=== PATIENT | female | born 1960 | race Caucasian/White ===

== ENCOUNTER 2017-05-09 19:48 | Emergency (ER) | payer OTHER ==
[2017-05-09] MEDS ORDERED: Norco 10/325 MG Tablet PO ONE (20:17)
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
[2017-05-09] MEDS ORDERED: Norco 10/325 MG Tablet ONE (20:24)
[2017-05-09 22:54] VITALS: BP 186/86; PULSE 77; O2SAT 95
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
== END 2017-05-09 23:01 | disposition home or self-care (01) ==
LOC: ED 19:48
DX: S20.212A Contusion of left front wall of thorax, initial encounter (principal); S16.1XXA Strain of muscle, fascia and tendon at neck level, initial encounter; S00.03XA Contusion of scalp, initial encounter; Y04.8XXA Assault by other bodily force, initial encounter; Y92.198 Other place in other specified residential institution as the place of occurrence of the external cause; Y99.0 Civilian activity done for income or pay
CPT/HCPCS: 70450; 71010; 72125; 99284; A9270-GY

== ENCOUNTER 2018-06-05 19:09 | Emergency (ER) | payer BC, OTHER ==
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
[2018-06-05] MEDS ORDERED: Sodium Chloride 0.9% 1000 ML 1,000 ML IV STA (20:08)
[2018-06-05] MEDS ORDERED: Zofran 4 MG/2 ML VIAL IV ONE (20:08)
[2018-06-05 20:38] LABS: Appearance CLEAR (CLEAR); Bilirubin NEGATIVE (NEGATIVE); Blood NEGATIVE Ery/ul (0-5); Glucose >=500 mg/dL (NEGATIVE); Ketones NEGATIVE (NEGATIVE); Leukocyte Esterase NEGATIVE (NEGATIVE); Nitrite NEGATIVE (NEGATIVE); Protein,Urine Dip NEGATIVE (Negative); Specific Gravity 1.025 (1.005-1.025); Urobilinogen NEGATIVE mg/dL (0-1)
[2018-06-05 21:27] LABS: BASOPHIL % 0.1 % (0.0-0.4); Basophil (Absolute #) 0.01 (0-0.4); Eosinophil % 3.4 % (0.00-5.0); Eosinophil (Absolute #) 0.29 (0-0.5); Granulocyte Absolute (ANC) 5.99 (1.4-6.9); Granulocytes % 70.8 % (36.0-66.0); Hematocrit 42.3 % (35-47); Hemoglobin 13.7 gm/dl (12.0-16.0); Lymphocyte (Absolute #) 1.61 (1.0-4.6); Mean Cell Volume 91.4 fl (78-100); Mean Corpuscular Hemoglobin 29.6 pg (26-32); Mean Corpuscular Hgb Concent. 32.4 g/dl (32-36); Mean Platelet Volume 12.3 fl (6-9.5); Monocyte (Absolute #) 0.57 (0.0-1.3); Monocytes % 6.7 % (0.0-12.0); Platelet Count 214 K/mm3 (150-450); Red Blood Count 4.63 M/mm3 (4.1-5.4); Red Cell Distribution Width 14.6 % (11.5-14.0); White Blood Count 8.5 K/mm3 (4.0-10.5)
[2018-06-05 21:54] LABS: ALBUMIN 3.9 g/dL (3.5-5.0); ALKALINE PHOSPHATASE 74 U/L (38-126); ANION GAP 11.2 MEQ/L (5-15); BLOOD UREA NITROGEN 22 mg/dL (7-17); CHLORIDE 101 mmol/L (98-107); Calcium 9.2 mg/dL (8.4-10.2); Carbon Dioxide 28 mmol/L (22-30); Creatinine 1 0.73 mg/dL (0.52-1.04); Glucose 172 mg/dL (74-106); Potassium 4.4 mmol/L (3.5-5.1); SGOT/AST 15 U/L (14-36); SGPT/ALT 13 U/L (0-35); SODIUM 136 mmol/L (137-145); Total Protein 6.8 g/dL (6.3-8.2)
[2018-06-05] MEDS ORDERED: Zofran 4 MG/2 ML VIAL ONE (23:36)
[2018-06-05] MEDS ORDERED: Sodium Chloride 0.9% 1000 ML 1,000 ML ONE (23:36)
[2018-06-06 01:15] VITALS: PULSE 83
[2018-06-06 02:09] VITALS: O2SAT 95
[2018-06-06 02:36] VITALS: BP 156/88
--- NOTE | 2018-06-06 08:46 | XRAY ---
Indication: Headache and dizziness. High blood pressure and high blood sugar. Multiple contiguous axial images obtained through the head without contrast. Comparison: May 09, 2017. Again normal appearing brain parenchyma, ventricles, and bony calvarium. Visualized paranasal sinuses and mastoid air cells are clear. Impression: Stable normal CT head without contrast exam. CT DI 67.60
--- NOTE | 2018-06-06 09:13 | XRAY ---
Indication: Dizziness. Chest heaviness and short of breath. Elevated d-dimer. Multiple contiguous axial images obtained through the chest using 80 cc Isovue 370 contrast and PE protocol. Comparison: Routine CT chest May 14, 2012. There is satisfactory opacification of the pulmonary arteries to includes the lobar and segmental branches. No filling defect or pulmonary embolus. Heart is not enlarged. Aorta is normal in course and caliber. Incidental tiny subcarinal and bilateral hilar calcified nodes. No pathologic mediastinal/hilar lymphadenopathy. Again small hiatal hernia. Examination of the lung parenchyma again demonstrates bilateral dependent atelectasis, left base fibrosis/scarring, and small right lower lobe bleb. No suspicious pulmonary mass, infiltrate, or effusion. Bony thorax intact again with mild degenerative changes throughout the spine. Limited upper abdomen again demonstrates mild fatty liver and cholecystectomy clips. Impression: 1. Negative pulmonary embolus. No acute cardiopulmonary abnormalities. 2. Again small hiatal hernia, fatty liver, and evidence for old granulomatous disease. Comment: Preliminary interpretation was made by [facility]. No critical discrepancy. CT DI 28.13
== END 2018-06-06 02:45 | disposition home or self-care (01) ==
LOC: ED 19:09
DX: R42 Dizziness and giddiness (principal); H92.01 Otalgia, right ear; R79.1 Abnormal coagulation profile; E11.9 Type 2 diabetes mellitus without complications; Z79.84 Long term (current) use of oral hypoglycemic drugs; Z79.899 Other long term (current) drug therapy
CPT/HCPCS: 36000; 36415; 70450; 71260; 80053; 81001; 83605; 84484; 85025; 85379; 93005; 96360; 96374; 99284; J2405

== ENCOUNTER 2019-06-28 00:22 | Emergency (ER) | payer OTHER ==
--- NOTE | 2019-06-28 00:33 | ERPHSYRPT ---
- History of Present Illness Time Seen by Provider: 06/28/19 00:33 Source: patient, EMS Exam Limitations: no limitations Patient Subjective Stated Complaint: pt states she noticed that her pressure was high since yesterday. today reading 190/100. pt called nurse and they told her to take extra dose of lisinopril at 1800. pressure still high so pt friend called 911. Triage Nursing Assessment: ptg is alert and oriented, states that she has no pain at this time. pt states her pressure is now about normal after arriving to er 178/74 Physician History: 58 y/o white female presents via ems because of elevated bp. pt has htn but sbp usually in the 150s. pt has noticed last few days sbp is higher than usual. pt has not had any symptoms of abd pain, cp, headache or visual changes. pt arrived via ems because friend called ems and at home sbp >200. ems reports her sbp has slowly dropped during transport here. pt told RN she refuses iv placement and wants to go home since her sbp is now in the range of normal for her and she has no sx. i have convinced her to stay for a few more bp readings and check her bmp. she does not anything more than that. Timing/Duration: today Severity: mild Modifying Factors: Improves With: nothing Associated Symptoms: denies symptoms Allergies/Adverse Reactions: diclofenac Allergy (Verified 06/28/19 00:31) Sulfa (Sulfonamide Antibiotics) [Sulfa(Sulfonamide Antibiotics)] Allergy ( Verified 06/28/19 00:31) topiramate [From Topamax] Allergy (Verified 06/28/19 00:31) Home Medications: Acetaminophen [Tylenol] 0 mg PO DAILY PRN 05/09/17 [History] Aspirin 81 mg PO DAILY 05/09/17 [History] Lisinopril 0 mg PO DAILY 05/09/17 [History] Lovastatin 0 mg PO DAILY 05/09/17 [History] Metformin HCl 1,000 mg PO BID 05/09/17 [History] Pioglitazone HCl [Actos] 0 mg PO DAILY 05/09/17 [History] Sitagliptin Phosphate [Januvia] 0 mg PO DAILY 05/09/17 [History] Empagliflozin [Jardiance] 1 tab PO DAILY 06/05/18 [History] Ciprofloxacin HCl [Cipro] 500 mg PO DAILY 06/28/19 [History] Levetiracetam 500 mg PO DAILY 06/28/19 [History] Hx Tetanus, Diphtheria Vaccination/Date Given: No Hx Influenza Vaccination/Date Given: No Hx Pneumococcal Vaccination/Date Given: No - Review of Systems Constitutional: No Symptoms Eyes: No Symptoms Ears, Nose, & Throat: No Symptoms Respiratory: No Symptoms Cardiac: No Symptoms Abdominal/Gastrointestinal: No Symptoms Genitourinary Symptoms: No Symptoms Musculoskeletal: No Symptoms Skin: No Symptoms Neurological: No Symptoms Psychological: No Symptoms Endocrine: No Symptoms Hematologic/Lymphatic: No Symptoms Immunological/Allergic: No Symptoms All Other Systems: Reviewed and Negative - Past Medical History Pertinent Past Medical History: Yes Neurological History: Migraines, Peripheral Neuropathy Cardiac History: No Pertinent History, Angina Respiratory History: No Pertinent History, Other Endocrine Medical History: Diabetes Type II, Other Musculoskeletal History: Osteoarthritis History: No Pertinent History Psycho-Social History: No Pertinent History Female Reproductive Disorders: No Pertinent History Other Medical History: upper torso neuropathy, overactive bladder, - Past Surgical History Past Surgical History: Yes Neuro Surgical History: No Pertinent History Cardiac: No Pertinent History Respiratory: No Pertinent History Gastrointestinal: Cholecystectomy Genitourinary: No Pertinent History Musculoskeletal: No Pertinent History Female Surgical History: Section Other Surgical History: RIGHT KNEE SURGERY - Social History Smoking Status: Former smoker Exposure to second hand smoke: Yes Drug Use: none Patient Lives Alone: Yes - Nursing Vital Signs Nursing Vital Signs: Initial Vital Signs Temperature 98.4 F 06/28/19 00:23 Pulse Rate 78 06/28/19 00:23 Respiratory Rate 18 06/28/19 00:23 Blood Pressure 178/74 06/28/19 00:23 O2 Sat by Pulse Oximetry 97 06/28/19 00:23 Pain Scale Pain Intensity 0 - Physical Exam General Appearance: no apparent distress Eye Exam: PERRL/EOMI, eyes nml inspection Ears, Nose, Throat Exam: normal ENT inspection, moist mucous membranes Neck Exam: normal inspection, non-tender, supple, full range of motion Respiratory Exam: normal breath sounds, lungs clear, airway intact, No chest tenderness, No respiratory distress Cardiovascular Exam: regular rate/rhythm, normal heart sounds, normal peripheral pulses Gastrointestinal/Abdomen Exam: No tenderness Rectal Exam: not done Back Exam: normal inspection, normal range of motion, No CVA tenderness, No vertebral tenderness Extremity Exam: normal inspection, normal range of motion, pelvis stable Neurologic Exam: alert, oriented x 3, 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, 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 Skin Exam: normal color, warm, dry Lymphatic Exam: No adenopathy SpO2 Interpretation: normal SpO2: 97 O2 Delivery: Room Air - Course Nursing assessment & vital signs reviewed: Yes Ordered Tests: Active Orders 24 hr Category Date Time Status BMP Stat Lab 06/28/19 01:20 Completed Lab/Rad Data: Laboratory Result Diagrams 06/28/19 01:20 Laboratory Results 06/28/19 Range/Units 01:20 Sodium 145 (137-145) mmol/L Potassium 4.4 (3.5-5.1) mmol/L Chloride 113 H (98-107) mmol/L Carbon Dioxide 27 (22-30) mmol/L Anion Gap 9.2 (5-15) MEQ/L BUN 21 H (7-17) mg/dL Creatinine 1.06 H (0.52-1.04) mg/dL Estimated GFR 56.2 ML/MIN Glucose 115 H (74-106) mg/dL Calcium 9.2 (8.4-10.2) mg/dL - Progress Progress: improved, re-examined Progress Note: 06/28/19 02:06 pt does not have cp or any other sx. she wants to go home. Counseled pt/family regarding: lab results, diagnosis, need for follow-up - Departure Departure Disposition: Home Clinical Impression: HTN (hypertension) Condition: Stable Critical Care Time: No Referrals: FOREIGN HIGH, DO [Primary Care Provider] - Additional Instructions: take your medications as prescribed. follow up with your primary doctor tomorrow for further management. monitor your blood pressure morning noon and night and keep a daily log to show your primary doctor.
[2019-06-28 01:37] LABS: ANION GAP 9.2 MEQ/L (5-15); Calcium 9.2 mg/dL (8.4-10.2); Creatinine 1 1.06 mg/dL (0.52-1.04); Potassium 4.4 mmol/L (3.5-5.1)
[2019-06-28 01:57] VITALS: BP 159/81; PULSE 77
[2019-06-28 02:06] VITALS: O2SAT 97
== END 2019-06-28 02:10 | disposition home or self-care (01) ==
LOC: ED 00:22
DX: I10 Essential (primary) hypertension (principal)
CPT/HCPCS: 36415; 80048; 99283

== ENCOUNTER 2021-03-09 17:48 | Emergency (ER) | payer OTHER ==
--- NOTE | 2021-03-09 18:05 | ERPHSYRPT ---
- History of Present Illness Time Seen by Provider: 03/09/21 18:05 Source: patient Exam Limitations: clinical condition Physician History: This is a 60-year-old obese white female who has a history of diabetes and hypertension as well as elevated cholesterol and presents with increasing confusion over the last few days. Patient's friends state that she was not answering her emails or phone and they were concerned about her and when they went to her home today she answered the door but was confused. She refused EMS transportation but her friends brought her in. Patient states that she does not think she has been eating or drinking well the last several days. She does state that she has been taking her medication as prescribed. She denies any new medications. She denies any head trauma. She denies chest pain and she denies shortness of breath. Timing/Duration: day(s), improved Severity: mild (To moderate) Character of Deficits: other (Flow to speak) Deficits: weak Baseline/Normal Cognition: alert oriented x 3 Current Cognition: alert but confused Baseline Gait: walks w/o assistance Associated Symptoms: confusion, weakness, No loss of consciousness, No nausea, No vomiting, No chest pain, No headache Allergies/Adverse Reactions: diclofenac Allergy (Verified 03/09/21 18:10) Sulfa (Sulfonamide Antibiotics) [Sulfa(Sulfonamide Antibiotics)] Allergy (Verified 03/09/21 18:10) topiramate [From Topamax] Allergy (Verified 03/09/21 18:10) Home Medications: Lovastatin 0 mg PO DAILY 05/09/17 [History] Metformin HCl 1,000 mg PO BID 05/09/17 [History] Pioglitazone HCl [Actos] 0 mg PO DAILY 05/09/17 [History] Sitagliptin Phosphate [Januvia] 0 mg PO DAILY 05/09/17 [History] lisinopriL [Lisinopril] 0 mg PO DAILY 05/09/17 [History] Empagliflozin [Jardiance] 1 tab PO DAILY 06/05/18 [History] Levetiracetam 500 mg PO DAILY 06/28/19 [History] Hx Tetanus, Diphtheria Vaccination/Date Given: No Hx Influenza Vaccination/Date Given: No Hx Pneumococcal Vaccination/Date Given: No Travel Risk - International Travel Have you traveled outside of the country in past 3 weeks: No - Coronavirus Screening Are you exhibiting any of the following symptoms?: No Close contact with a COVID-19 positive Pt in past 14-21 Days: No - Review of Systems Constitutional: Weakness Eyes: No Symptoms Ears, Nose, & Throat: No Symptoms Respiratory: No Symptoms Cardiac: No Symptoms Abdominal/Gastrointestinal: No Symptoms Genitourinary Symptoms: No Symptoms Musculoskeletal: No Symptoms Skin: No Symptoms Neurological: Other (Slow to speak) Psychological: No Symptoms Endocrine: No Symptoms Hematologic/Lymphatic: No Symptoms Immunological/Allergic: No Symptoms All Other Systems: Reviewed and Negative - Past Medical History Pertinent Past Medical History: Yes Neurological History: Migraines, Peripheral Neuropathy Cardiac History: No Pertinent History, Angina Respiratory History: No Pertinent History, Other Endocrine Medical History: Diabetes Type II, Other Musculoskeletal History: Osteoarthritis History: No Pertinent History Psycho-Social History: No Pertinent History Female Reproductive Disorders: No Pertinent History Other Medical History: upper torso neuropathy, overactive bladder, - Past Surgical History Past Surgical History: Yes Neuro Surgical History: No Pertinent History Cardiac: No Pertinent History Respiratory: No Pertinent History Gastrointestinal: Cholecystectomy Genitourinary: No Pertinent History Musculoskeletal: No Pertinent History Female Surgical History: Section Other Surgical History: RIGHT KNEE SURGERY - Social History Smoking Status: Former smoker Exposure to second hand smoke: Yes Drug Use: none Patient Lives Alone: Yes - Nursing Vital Signs Nursing Vital Signs: Initial Vital Signs O2 Sat by Pulse Oximetry 94 L 03/09/21 17:50 Pain Scale Pain Intensity 0 - Gal Coma Scale Best Eye Response ([place]): (4) open spontaneously Best Verbal Response (Gal): (4) confused conversation Best Motor Response ([place]): (6) obeys commands Gal Total: 14 - Physical Exam General Appearance: no apparent distress, alert, anxiety, obese Eye Exam: bilateral eye: normal inspection, PERRL, EOMI Ears, Nose, Throat Exam: normal ENT inspection, moist mucous membranes Neck Exam: normal inspection, non-tender, supple, full range of motion Respiratory: normal breath sounds, lungs clear, airway intact, No chest tenderness, No respiratory distress Cardiovascular: regular rate/rhythm, normal heart sounds, normal peripheral pulses Gastrointestinal: soft, normal bowel sounds, No tenderness Pelvic Exam: not done Rectal Exam: not done Back Exam: normal inspection, normal range of motion, No CVA tenderness, No vertebral tenderness Extremity Exam: normal inspection, normal range of motion, pelvis stable Mental Status: alert, cooperative, disoriented to person, disoriented to place, 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 There are no acute changes when compared to EKG dated 06/05/2018) Ordered Tests: Active Orders 24 hr Category Date Time Status EKG-ER Only STAT Care 03/09/21 18:18 Active IV Insertion STAT Care 03/09/21 18:18 Active NPO (ED) STAT Care 03/09/21 18:19 Active Pulse Oximetry (ED) STAT Care 03/09/21 18:18 Active HEAD WITHOUT CONTRAST [CT] Stat Exams 03/09/21 18:19 Taken CBC W DIFF Stat Lab 03/09/21 18:18 Completed CMP Stat Lab 03/09/21 18:18 Completed CULTURE,URINE Stat Lab 03/09/21 18:55 Received ETHYL ALCOHOL Stat Lab 03/09/21 18:18 Completed Lactic Acid Stat Lab 03/09/21 18:18 Completed MAGNESIUM Stat Lab 03/09/21 18:18 Completed POCT GLUCOSE Stat Lab 03/09/21 18:04 Completed TROPONIN Q3H Lab 03/09/21 18:30 Completed TROPONIN Q3H Lab 03/09/21 21:30 Ordered TROPONIN Q3H Lab 03/10/21 00:30 Ordered TROPONIN Q3H Lab 03/10/21 03:30 Ordered TROPONIN Q3H Lab 03/10/21 06:30 Ordered UA W/RFX UR CULTURE Stat Lab 03/09/21 18:55 Completed Urine Triage Profile Stat Lab 03/09/21 18:55 Completed Medication Summary Generic Name Dose Route Start Last Admin Trade Name Freq PRN Reason Stop Dose Admin Ceftriaxone Sodium/Dextrose 1 g in 50 mls @ 100 mls/hr 03/09/21 19:41 Rocephin 1 Gm-D5w 50 Ml Bag IV 03/09/21 20:10 STAT STA Discontinued Medications Generic Name Dose Route Start Last Admin Trade Name Reynaldo PRN Reason Stop Dose Admin Sodium Chloride 1,000 mls @ 999 mls/hr 03/09/21 18:18 03/09/21 18:39 Sodium Chloride 0.9% 1000 Ml IV 03/09/21 19:18 999 mls/hr .Q1H1M STA Administration Sodium Chloride Confirm 03/09/21 18:33 Sodium Chloride 0.9% 1000 Ml Administered 03/09/21 18:34 Dose 1,000 mls @ ud .ROUTE .STK-MED ONE Lab/Rad Data: Laboratory Result Diagrams 03/09/21 18:18 03/09/21 18:18 Laboratory Results 03/09/21 03/09/21 03/09/21 Range/Units 18:55 18:55 18:30 WBC (4.0-10.5) K/mm3 RBC (4.1-5.4) M/mm3 Hgb (12.0-16.0) gm/dl Hct (35-47) % MCV (78-100) fl MCH (26-32) pg MCHC (32-36) g/dl RDW (11.5-14.0) % Plt Count (150-450) K/mm3 MPV (7.5-11.0) fl Gran % (36.0-66.0) % Eos # (Auto) (0-0.5) Absolute Lymphs (auto) (1.0-4.6) Absolute Monos (auto) (0.0-1.3) Lymphocytes % (24.0-44.0) % Monocytes % (0.0-12.0) % Eosinophils % (0.00-5.0) % Basophils % (0.0-0.4) % Absolute Granulocytes (1.4-6.9) Basophils # (0-0.4) Sodium (137-145) mmol/L Potassium (3.5-5.1) mmol/L Chloride (98-107) mmol/L Carbon Dioxide (22-30) mmol/L Anion Gap (5-15) MEQ/L BUN (7-17) mg/dL Creatinine (0.52-1.04) mg/dL Estimated GFR ML/MIN Glucose (74-106) mg/dL POC Glucometer (74 to 106) mg/dL Lactic Acid (0.4-2.0) Calcium (8.4-10.2) mg/dL Magnesium (1.6-2.3) mg/dL Total Bilirubin (0.2-1.3) mg/dL AST (14-36) U/L ALT (0-35) U/L Alkaline Phosphatase (38-126) U/L Troponin I < 0.012 (0.000-0.034) ng/mL Serum Total Protein (6.3-8.2) g/dL Albumin (3.5-5.0) g/dL Urine Color YELLOW (YELLOW) Urine Appearance SLIGHTLY CLOUDY (CLEAR) Urine pH 5.0 (5-6) Ur Specific [place] 1.036 (1.005-1.025) Urine Protein 30 (Negative) Urine Ketones SMALL (NEGATIVE) Urine Blood NEGATIVE (0-5) Sanjiv/ul Urine Nitrite POSITIVE (NEGATIVE) Urine Bilirubin NEGATIVE (NEGATIVE) Urine Urobilinogen 4 (0-1) mg/dL Ur Leukocyte Esterase NEGATIVE (NEGATIVE) Urine WBC (Auto) 3-5 (0-5) /HPF Urine RBC (Auto) 0-2 (0-2) /HPF U Epithel Cells (Auto) RARE (FEW) /HPF Urine Bacteria (Auto) PACKED (NEGATIVE) /HPF Urine Mucus (Auto) SLIGHT (NEGATIVE) /HPF Urine Culture Reflexed YES (NO) Urine Glucose >=500 (NEGATIVE) mg/dL Urine Opiates Level NEGATIVE (NEGATIVE) Ur Methadone NEGATIVE (NEGATIVE) Urine Barbiturates NEGATIVE (NEGATIVE) Ur Phencyclidine (PCP) NEGATIVE (NEGATIVE) Urine Amphetamine NEGATIVE (NEGATIVE) U Benzodiazepine Level NEGATIVE (NEGATIVE) Urine Cocaine NEGATIVE (NEGATIVE) Urine Marijuana (THC) NEGATIVE (NEGATIVE) Ethyl Alcohol (0-10) mg/dL 03/09/21 03/09/21 03/09/21 Range/Units 18:18 18:18 18:18 WBC 4.3 (4.0-10.5) K/mm3 RBC 4.74 (4.1-5.4) M/mm3 Hgb 14.1 (12.0-16.0) gm/dl Hct 43.7 (35-47) % MCV 92.2 (78-100) fl MCH 29.7 (26-32) pg MCHC 32.3 (32-36) g/dl RDW 13.9 (11.5-14.0) % Plt Count 154 (150-450) K/mm3 MPV 12.6 H (7.5-11.0) fl Gran % 77.0 H (36.0-66.0) % Eos # (Auto) 0 (0-0.5) Absolute Lymphs (auto) 0.60 L (1.0-4.6) Absolute Monos (auto) 0.40 (0.0-1.3) Lymphocytes % 13.8 L (24.0-44.0) % Monocytes % 9.2 (0.0-12.0) % Eosinophils % 0.0 (0.00-5.0) % Basophils % 0.0 (0.0-0.4) % Absolute Granulocytes 3.34 (1.4-6.9) Basophils # 0 (0-0.4) Sodium 137 (137-145) mmol/L Potassium 3.7 (3.5-5.1) mmol/L Chloride 103 (98-107) mmol/L Carbon Dioxide 19 L (22-30) mmol/L Anion Gap 18.2 H (5-15) MEQ/L BUN 19 H (7-17) mg/dL Creatinine 0.84 (0.52-1.04) mg/dL Estimated GFR > 60.0 ML/MIN Glucose 241 H (74-106) mg/dL POC Glucometer (74 to 106) mg/dL Lactic Acid 1.5 (0.4-2.0) Calcium 8.6 (8.4-10.2) mg/dL Magnesium 1.9 (1.6-2.3) mg/dL Total Bilirubin 0.70 (0.2-1.3) mg/dL AST 33 (14-36) U/L ALT 16 (0-35) U/L Alkaline Phosphatase 81 (38-126) U/L Troponin I (0.000-0.034) ng/mL Serum Total Protein 6.6 (6.3-8.2) g/dL Albumin 3.7 (3.5-5.0) g/dL Urine Color (YELLOW) Urine Appearance (CLEAR) Urine pH (5-6) Ur Specific [place] (1.005-1.025) Urine Protein (Negative) Urine Ketones (NEGATIVE) Urine Blood (0-5) Sanjiv/ul Urine Nitrite (NEGATIVE) Urine Bilirubin (NEGATIVE) Urine Urobilinogen (0-1) mg/dL Ur Leukocyte Esterase (NEGATIVE) Urine WBC (Auto) (0-5) /HPF Urine RBC (Auto) (0-2) /HPF U Epithel Cells (Auto) (FEW) /HPF Urine Bacteria (Auto) (NEGATIVE) /HPF Urine Mucus (Auto) (NEGATIVE) /HPF Urine Culture Reflexed (NO) Urine Glucose (NEGATIVE) mg/dL Urine Opiates Level (NEGATIVE) Ur Methadone (NEGATIVE) Urine Barbiturates (NEGATIVE) Ur Phencyclidine (PCP) (NEGATIVE) Urine Amphetamine (NEGATIVE) U Benzodiazepine Level (NEGATIVE) Urine Cocaine (NEGATIVE) Urine Marijuana (THC) (NEGATIVE) Ethyl Alcohol < 10 (0-10) mg/dL 03/09/21 Range/Units 18:04 WBC (4.0-10.5) K/mm3 RBC (4.1-5.4) M/mm3 Hgb (12.0-16.0) gm/dl Hct (35-47) % MCV (78-100) fl MCH (26-32) pg MCHC (32-36) g/dl RDW (11.5-14.0) % Plt Count (150-450) K/mm3 MPV (7.5-11.0) fl Gran % (36.0-66.0) % Eos # (Auto) (0-0.5) Absolute Lymphs (auto) (1.0-4.6) Absolute Monos (auto) (0.0-1.3) Lymphocytes % (24.0-44.0) % Monocytes % (0.0-12.0) % Eosinophils % (0.00-5.0) % Basophils % (0.0-0.4) % Absolute Granulocytes (1.4-6.9) Basophils # (0-0.4) Sodium (137-145) mmol/L Potassium (3.5-5.1) mmol/L Chloride (98-107) mmol/L Carbon Dioxide (22-30) mmol/L Anion Gap (5-15) MEQ/L BUN (7-17) mg/dL Creatinine (0.52-1.04) mg/dL Estimated GFR ML/MIN Glucose (74-106) mg/dL POC Glucometer 228 H (74 to 106) mg/dL Lactic Acid (0.4-2.0) Calcium (8.4-10.2) mg/dL Magnesium (1.6-2.3) mg/dL Total Bilirubin (0.2-1.3) mg/dL AST (14-36) U/L ALT (0-35) U/L Alkaline Phosphatase (38-126) U/L Troponin I (0.000-0.034) ng/mL Serum Total Protein (6.3-8.2) g/dL Albumin (3.5-5.0) g/dL Urine Color (YELLOW) Urine Appearance (CLEAR) Urine pH (5-6) Ur Specific [place] (1.005-1.025) Urine Protein (Negative) Urine Ketones (NEGATIVE) Urine Blood (0-5) Sanjiv/ul Urine Nitrite (NEGATIVE) Urine Bilirubin (NEGATIVE) Urine Urobilinogen (0-1) mg/dL Ur Leukocyte Esterase (NEGATIVE) Urine WBC (Auto) (0-5) /HPF Urine RBC (Auto) (0-2) /HPF U Epithel Cells (Auto) (FEW) /HPF Urine Bacteria (Auto) (NEGATIVE) /HPF Urine Mucus (Auto) (NEGATIVE) /HPF Urine Culture Reflexed (NO) Urine Glucose (NEGATIVE) mg/dL Urine Opiates Level (NEGATIVE) Ur Methadone (NEGATIVE) Urine Barbiturates (NEGATIVE) Ur Phencyclidine (PCP) (NEGATIVE) Urine Amphetamine (NEGATIVE) U Benzodiazepine Level (NEGATIVE) Urine Cocaine (NEGATIVE) Urine Marijuana (THC) (NEGATIVE) Ethyl Alcohol (0-10) mg/dL - Progress Progress: improved, re-examined Progress Note: 03/09/21 19:52 CAT scan of the head without contrast shows no acute intracranial abnormality. Counseled pt/family regarding: lab results, diagnosis, need for follow-up, rad results - Departure Departure Disposition: Home Clinical Impression: UTI (urinary tract infection), Confusion Condition: Stable Critical Care Time: No Referrals: FOREIGN HIGH DO [Primary Care Provider] - Additional Instructions: Drink plenty of fluids. Take your medication as prescribed. Follow-up with your primary care physician for further management. Return to the emergency department if symptoms worsen. Prescriptions: Cefdinir 300 mg PO BID 7 Days #14 cap
[2021-03-09] MEDS ORDERED: Sodium Chloride 0.9% 1000 ML 1,000 ML IV STA (18:18)
[2021-03-09] MEDS ORDERED: Sodium Chloride 0.9% 1000 ML 1,000 ML ONE (18:33)
[2021-03-09 18:57] LABS: Absolute Neutrophil Ct (ANC) 3.34 (1.4-6.9); Basophil (Absolute #) 0 (0-0.4); Eosinophil (Absolute #) 0 (0-0.5); Hematocrit 43.7 % (35-47); Hemoglobin 14.1 gm/dl (12.0-16.0); Lymphocytes % 13.8 % (24.0-44.0); Mean Cell Volume 92.2 fl (78-100); Mean Corpuscular Hemoglobin 29.7 pg (26-32); Mean Corpuscular Hgb Concent. 32.3 g/dl (32-36); Mean Platelet Volume 12.6 fl (7.5-11.0); Monocytes % 9.2 % (0.0-12.0); Platelet Count 154 K/mm3 (150-450); Red Blood Count 4.74 M/mm3 (4.1-5.4); Red Cell Distribution Width 13.9 % (11.5-14.0); White Blood Count 4.3 K/mm3 (4.0-10.5)
[2021-03-09 19:03] VITALS: BP 142/81; PULSE 91; O2SAT 94
[2021-03-09 19:06] LABS: Appearance SLIGHTLY CLOUDY (CLEAR); Bacteria PACKED /HPF (NEGATIVE); Bilirubin NEGATIVE (NEGATIVE); Blood NEGATIVE Ery/ul (0-5); Epithelial Cells RARE /HPF (FEW); Glucose >=500 mg/dL (NEGATIVE); Ketones SMALL (NEGATIVE); Leukocyte Esterase NEGATIVE (NEGATIVE); Mucus SLIGHT /HPF (NEGATIVE); Nitrite POSITIVE (NEGATIVE); Protein,Urine Dip 30 (Negative); RBC 0-2 /HPF (0-2); Specific Gravity 1.036 (1.005-1.025); Urobilinogen 4 mg/dL (0-1)
[2021-03-09 19:08] LABS: ALBUMIN 3.7 g/dL (3.5-5.0); ALKALINE PHOSPHATASE 81 U/L (38-126); ANION GAP 18.2 MEQ/L (5-15); BLOOD UREA NITROGEN 19 mg/dL (7-17); CHLORIDE 103 mmol/L (98-107); Calcium 8.6 mg/dL (8.4-10.2); Carbon Dioxide 19 mmol/L (22-30); Creatinine 1 0.84 mg/dL (0.52-1.04); EST GLOMERULAR FILTRATION RATE > 60.0 ML/MIN; ETHYL ALCOHOL < 10 mg/dL (0-10); Glucose 241 mg/dL (74-106); MAGNESIUM 1.9 mg/dL (1.6-2.3); Potassium 3.7 mmol/L (3.5-5.1); SGOT/AST 33 U/L (14-36); SGPT/ALT 16 U/L (0-35); SODIUM 137 mmol/L (137-145); Total Protein 6.6 g/dL (6.3-8.2)
[2021-03-09 19:12] LABS: Amphetamine,Urine NEGATIVE (NEGATIVE); Barbiturate,Urine NEGATIVE (NEGATIVE); Benzodiazepine,Urine NEGATIVE (NEGATIVE); Cocaine,Urine NEGATIVE (NEGATIVE); Methadone,Urine NEGATIVE (NEGATIVE); Opiate,Urine NEGATIVE (NEGATIVE); PCP,Urine NEGATIVE (NEGATIVE); THC,Urine NEGATIVE (NEGATIVE)
[2021-03-09] MEDS ORDERED: ROCEPHIN 1 Gm-D5w 50 ml Bag** 1 G/50 ML IVPB IV STA (19:41)
[2021-03-09] MEDS ORDERED: ROCEPHIN 1 Gm-D5w 50 ml Bag** 1 G/50 ML IVPB IV ONE (20:01)
--- NOTE | 2021-03-10 08:53 | XRAY ---
Indication: Confusion. Hesitation with verbalization. Multiple contiguous axial images obtained through the head without contrast. Comparison: June 05, 2018. There is age-appropriate global atrophy and minimal periventricular degenerative micro-ischemia bilaterally. No acute intracranial hemorrhage, abnormal extra-axial fluid collection, or mass effect. Fourth ventricle is midline without hydrocephalus. Martinez-white matter differentiation preserved. Bony calvarium intact. Visualized paranasal sinuses and mastoid air cells are clear. Impression: Nonacute senile brain.
== END 2021-03-09 21:31 | disposition home or self-care (01) ==
LOC: ED 17:48
DX: N39.0 Urinary tract infection, site not specified (principal); R41.0 Disorientation, unspecified; Z79.899 Other long term (current) drug therapy; I10 Essential (primary) hypertension; E11.9 Type 2 diabetes mellitus without complications
CPT/HCPCS: 36000; 36415; 70450; 80053; 80307; 81001; 82947; 83605; 83735; 84484; 85025; 87077; 87086; 87186; 93005; 94760; 96360; 99284; G0480; P9612; J0696

== ENCOUNTER 2024-02-23 15:06 | Day surgery (SDC) | payer MEDICARE ==
[2012-05-14 10:58] VITALS: BP 141/85
[2024-02-23] MEDS ORDERED: Sodium Chloride 0.9(Preservative Free) 10 ML IJ ONE (15:07)
[2024-02-23] MEDS ORDERED: LIDOCAINE HCL 1% 50 MG/5 ML VL PF IJ ONE (15:07)
[2024-02-23] MEDS ORDERED: Depo-Medrol 40 MG/ML IM ONE (15:07)
--- NOTE | 2024-02-23 16:49 | XRAY ---
Indication: Lumbar YOSHI. Intraoperative fluoroscopy provided for 17 seconds. 3 digital spot image demonstrates needle tip projecting posterior to lumbosacral junction. Small amount of contrast injected for needle tip placement. Correlate with intraoperative findings/report.
--- NOTE | 2024-02-24 10:36 | XRAY ---
17 seconds of fluoroscopy were used in surgery for a Lumbar YOSHI.
== END 2024-02-23 16:24 ==
LOC: SDC-PAIN 15:06
PROVIDERS: ATTEND Psychiatry & Neurology Pain Medicine
DX: M54.16 Radiculopathy, lumbar region (principal); E11.9 Type 2 diabetes mellitus without complications
CPT/HCPCS: 62323; 72100; 77003; 82947; J2001; Q9966

== ENCOUNTER 2024-03-29 14:10 | Day surgery (SDC) | payer MEDICARE ==
[2012-05-14 10:58] VITALS: BP 141/85
[2024-03-29] MEDS ORDERED: GELSYN-3 IU ONE (14:11)
[2024-03-29] MEDS ORDERED: LIDOCAINE HCL 1% 50 MG/5 ML VL PF IJ ONE (14:11)
--- NOTE | 2024-03-29 16:58 | XRAY ---
Indication: Right knee injection. Intraoperative fluoroscopy provided for 8 seconds. Single digital spot image submitted for interpretation demonstrates needle tip projecting over the right femur intercondylar notch. Small amount of contrast injected for needle tip placement. Correlate with intraoperative findings/report.
--- NOTE | 2024-03-29 16:58 | XRAY ---
Indication: Left knee injection. Intraoperative fluoroscopy provided for 10 seconds. Single digital spot image submitted for interpretation demonstrates needle tip projecting over the left femur intercondylar notch. Small amount of contrast injected for needle tip placement. Correlate with intraoperative findings/report.
--- NOTE | 2024-03-29 17:32 | XRAY ---
10 seconds of fluoroscopy was used in surgery for a right intra-articular knee injection.
--- NOTE | 2024-03-29 17:32 | XRAY ---
10 seconds of fluoroscopy was used in surgery for a left intra-articular knee injection.
== END 2024-03-29 16:53 | disposition home or self-care (01) ==
LOC: SDC-PAIN 14:10
PROVIDERS: ATTEND Psychiatry & Neurology Pain Medicine
DX: M17.0 Bilateral primary osteoarthritis of knee (principal); E11.9 Type 2 diabetes mellitus without complications
CPT/HCPCS: 20610; 73560; 77002; 82947; J2001; J7328; Q9966

== ENCOUNTER 2024-04-04 13:47 | Day surgery (SDC) | payer MEDICARE ==
[2012-05-14 10:58] VITALS: BP 141/85
[2024-04-04] MEDS ORDERED: LIDOCAINE HCL 1% 50 MG/5 ML VL PF IJ ONE (13:48)
--- NOTE | 2024-04-04 20:12 | XRAY ---
Indication: Right knee injection Intraoperative fluoroscopy provided for 7 seconds. Single digital spot image submitted for interpretation demonstrates needle tip projecting over the right femur intercondylar notch. Small amount of contrast injected for needle tip placement. Correlate with intraoperative findings/report.
--- NOTE | 2024-04-04 20:13 | XRAY ---
Indication: Left knee injection Intraoperative fluoroscopy provided for 8 seconds. Single digital spot image submitted for interpretation demonstrates needle tip projecting over the left femur intercondylar notch. Small amount of contrast injected for needle tip placement. Correlate with intraoperative findings/report.
--- NOTE | 2024-04-05 21:05 | XRAY ---
7 seconds of fluoroscopy was used in surgery for a right intra-articular knee injection.
--- NOTE | 2024-04-05 21:05 | XRAY ---
8 seconds of fluoroscopy was used in surgery for a left intra-articular knee injection.
== END 2024-04-04 17:18 | disposition home or self-care (01) ==
LOC: SDC-PAIN 13:47
PROVIDERS: ATTEND Psychiatry & Neurology Pain Medicine
DX: M17.0 Bilateral primary osteoarthritis of knee (principal); E11.9 Type 2 diabetes mellitus without complications
CPT/HCPCS: 20610; 73560; 77002; 82947; J2001; Q9966

== ENCOUNTER 2024-04-11 15:03 | Day surgery (SDC) | payer MEDICARE ==
[2012-05-14 10:58] VITALS: BP 141/85
[2024-04-11] MEDS ORDERED: GELSYN-3 IU ONE (15:04)
[2024-04-11] MEDS ORDERED: LIDOCAINE HCL 1% AMPUL 5 ML IJ ONE (15:04)
--- NOTE | 2024-04-11 19:35 | XRAY ---
Indication: Right knee injection. Intraoperative fluoroscopy provided for 10 seconds. Single digital spot image submitted for interpretation demonstrates needle tip projecting over right femur intercondylar notch. Small amount of contrast injected for needle tip placement. Correlate with intraoperative findings/report.
--- NOTE | 2024-04-11 19:35 | XRAY ---
Indication: Left knee injection. Intraoperative fluoroscopy provided for 9 seconds. Single digital spot image submitted for interpretation demonstrates needle tip projecting over left femur intercondylar notch. Small amount of contrast injected for needle tip placement. Correlate with intraoperative findings/report.
--- NOTE | 2024-04-12 11:27 | XRAY ---
10 seconds of fluoroscopy was used in surgery for a right intra-articular knee injection.
--- NOTE | 2024-04-12 11:27 | XRAY ---
9 seconds of fluoroscopy was used in surgery for a left intra-articular knee injection.
== END 2024-04-11 17:30 | disposition home or self-care (01) ==
LOC: SDC-PAIN 15:03
PROVIDERS: ATTEND Psychiatry & Neurology Pain Medicine
DX: M17.0 Bilateral primary osteoarthritis of knee (principal); E11.9 Type 2 diabetes mellitus without complications
CPT/HCPCS: 20610; 73560; 77002; 77003; 82947; J7328; Q9966

== ENCOUNTER 2024-10-12 16:07 | Emergency (ER) | payer MEDICARE ==
[2024-10-12 16:19] VITALS: PULSE 78; RESP 17; TEMP 97.8
--- NOTE | 2024-10-12 16:44 | ERPHSYRPT ---
- History of Present Illness Time Seen by Provider: 10/12/24 16:20 Source: patient Exam Limitations: no limitations Patient Subjective Stated Complaint: C/O right should pain following a fall in her kitchen on Tuesday. States her cat tripped her up causing her to fall. Triage Nursing Assessment: Patient came back to ER in a W/C and assisted to the bed. She is alert and oriented. No bruising or swelling noted. Patient able to take off own shirt and place herself in a gown for the exam. Physician History: This is an obese 64-year-old white female patient who has a history of seizure disorder, hypertension, diabetes, hyperlipidemia and presents to the emergency department by private vehicle secondary to accidentally getting tripped up by her cat in her kitchen. She fell onto her right shoulder and right knee. She did not hit her head. She does not have neck pain. She does not have headache. She can move all her extremities but has pain in those areas. Patient was able to change into a hospital gown on her own without assistance. Patient is on muscle relaxants. Patient denies abdominal pain. Patient denies chest pain. Patient denies shortness of breath Occurred: just prior to arrival Reason for Fall: tripped (Tripped up by her cat) Injuries/Pain Location: upper extremity (Right shoulder and right humerus), lower extremity (Right knee) Loss of Consciousness: no loss of consciousness Severity of Pain-Max: mild Severity of Pain-Current: mild Modifying Factors: Improves With: movement Associated Symptoms (Fall): extremity injury (Right shoulder, right humerus and right knee), No abdominal pain, No back pain, No chest pain, No headache, No shortness of breath, No trouble walking Allergies/Adverse Reactions: diclofenac Allergy (Verified 10/12/24 16:12) Sulfa (Sulfonamide Antibiotics) [Sulfa(Sulfonamide Antibiotics)] Allergy (Verified 10/12/24 16:12) topiramate [From Topamax] Allergy (Verified 10/12/24 16:12) Home Medications: Lovastatin 0 mg PO DAILY 05/09/17 [History] Metformin HCl 1,000 mg PO BID 05/09/17 [History] Pioglitazone HCl [Actos] 0 mg PO DAILY 05/09/17 [History] Sitagliptin Phosphate [Januvia] 0 mg PO DAILY 05/09/17 [History] lisinopriL [Lisinopril] 0 mg PO DAILY 05/09/17 [History] Empagliflozin [Jardiance] 1 tab PO DAILY 06/05/18 [History] levETIRAcetam [Levetiracetam ER] 500 mg PO DAILY 06/28/19 [History] Hx Tetanus, Diphtheria Vaccination/Date Given: No Hx Influenza Vaccination/Date Given: No Hx Pneumococcal Vaccination/Date Given: No Travel Risk - International Travel Have you traveled outside of the country in past 3 weeks: No - Emerging Infectious Disease Are you exhibiting symptoms associated with any current EIDs: No - Review of Systems Constitutional: No Symptoms Eyes: No Symptoms Ears, Nose, & Throat: No Symptoms Respiratory: No Symptoms Cardiac: No Symptoms Abdominal/Gastrointestinal: No Symptoms Genitourinary Symptoms: No Symptoms Musculoskeletal: Fall, Joint Pain (Shoulder, right humerus and right knee), No Deformity Skin: No Symptoms Neurological: No Symptoms Psychological: No Symptoms Endocrine: No Symptoms Hematologic/Lymphatic: No Symptoms Immunological/Allergic: No Symptoms All Other Systems: Reviewed and Negative - Past Medical History Pertinent Past Medical History: Yes Neurological History: Migraines, Peripheral Neuropathy Cardiac History: No Pertinent History, Angina Respiratory History: No Pertinent History, Other Endocrine Medical History: Diabetes Type II, Other Musculoskeletal History: Osteoarthritis History: No Pertinent History Psycho-Social History: No Pertinent History Female Reproductive Disorders: No Pertinent History Other Medical History: upper torso neuropathy, overactive bladder - Past Surgical History Past Surgical History: Yes Neuro Surgical History: No Pertinent History Cardiac: No Pertinent History Respiratory: No Pertinent History Gastrointestinal: Cholecystectomy Genitourinary: No Pertinent History Musculoskeletal: No Pertinent History Female Surgical History: Section Other Surgical History: RIGHT KNEE SURGERY - Social History Smoking Status: Former smoker Exposure to second hand smoke: Yes Drug Use: none - Social Determinants of Health Will the patient participate in the screening: Declined to provide - Nursing Vital Signs Nursing Vital Signs: Initial Vital Signs Temperature 97.8 F 10/12/24 16:13 Pulse Rate 78 10/12/24 16:13 Respiratory Rate 17 10/12/24 16:13 Blood Pressure 154/75 10/12/24 16:13 O2 Sat by Pulse Oximetry 99 10/12/24 16:13 Pain Scale Pain Intensity 9 - [place] Coma Score Best Eye Response ([place]): (4) open spontaneously Best Verbal Response ([place]): (5) oriented Best Motor Response ([place]): (6) obeys commands Gal Total: 15 - Physical Exam General Appearance: no apparent distress, alert, anxiety, obese Head Injury: no evidence of injury Eye Exam: PERRL/EOMI, eyes nml inspection ENT Exam: airway nml, nml ext.inspection Neck Exam: supple, trachea midline, full range of motion, normal alignment, normal inspection Respiratory/Chest Exam: normal breath sounds, No chest tenderness, No respiratory distress, No ecchymosis, No crepitus Cardiovascular Exam: normal heart sounds, regular rate/rhythm Gastrointestinal Exam: No tenderness Back Exam: normal inspection, normal range of motion, No CVA tenderness, No vertebral tenderness Extremity Exam: normal inspection, normal range of motion, pelvis stable, tenderness (Shoulder, right humerus and right knee), No deformities, No hip tenderness Neurologic Exam: alert, oriented x 3, cooperative, 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 tested, nml cerebellar function, nml station & gait, sensation nml Skin Exam: normal color, warm, dry SpO2 Interpretation: normal SpO2: 99 O2 Delivery: Room Air - Course Nursing assessment & vital signs reviewed: Yes Ordered Tests: Active Orders 24 hr Category Date Time Status HUMERUS Stat Exams 10/12/24 16:45 Taken KNEE (3 VIEWS) Stat Exams 10/12/24 16:44 Taken SHOULDER Stat Exams 10/12/24 16:45 Taken - Progress Progress: pain not gone completely Progress Note: 10/12/24 18:05 My medical decision making and the assignment of low to moderate complexity of this patient's medical issue today is based on review of the patient's past medical history, review of the patient's medication list, review the patient drug allergy list, history present illness and physical findings on examination. The workup in this patient includes x-ray of the areas that the patient specifies she is having pain which includes right shoulder, right humerus and right knee. Differential diagnosis includes but is not limited to fracture/di slocation/sprain/strain of above extremity regions 10/12/24 18:09 I interpreted the preliminary report on the following x-ray studies. They include: X-ray of the right shoulder shows chronic changes but no evidence of acute fracture or dislocation. X-ray of the right humerus shows no acute fracture or dislocation. X-ray of right knee shows no acute fracture or dislocation. There are chronic changes present. Counseled pt/family regarding: diagnosis, need for follow-up, rad results Medical Desision Making - Diagnostic Testing Diagnostic test were ordered, analyzed, and reviewed by me: Yes Radiological Interpretation: Interpreted by me, Teleradiologist Report - Risk of complications Low Risk: Low risk of morbidity from additional dx testing or treatment - Departure Departure Disposition: Home Clinical Impression: Fall with no significant injury Condition: Stable Critical Care Time: No Referrals: ESHA GUILLAUME [Primary Care Provider] - Follow up/PCP as directed Instructions: Preventing falls - ED discharge instructions Additional Instructions: Ice pack to tender areas 3 times a day for the next 3 days. You may add Tylenol 4 times a day to help control pain. Continue your muscle relaxant and other medications as prescribed. Call your primary care provider on 10/15/2024, to make arrangements for follow-up appointment for further evaluation and management.
[2024-10-12 18:06] VITALS: O2SAT 99
[2024-10-12 18:17] VITALS: BP 132/92
--- NOTE | 2024-10-12 21:31 | XRAY ---
Indication: Status post fall injury 5 days ago. Comparison: None 3 view right knee demonstrates osteopenia and moderate/advanced tricompartmental degenerative changes greatest patellofemoral compartment. No acute bony, articular, or soft tissue abnormalities.
--- NOTE | 2024-10-12 21:37 | XRAY ---
Indication: Status post fall injury 5 days ago. Comparison: None 3 view right shoulder demonstrates nondisplaced slightly comminuted humeral head/neck fracture. Elsewhere osteopenia and moderate AC degenerative arthropathy. No other bony, articular, or soft tissue abnormalities. Comment: Fracture not reported by interpreting ER clinician. Telephone report given to Dr. Smith at 0930 hrs. on October 12, 2024.
--- NOTE | 2024-10-12 21:39 | XRAY ---
Indication: Status post fall injury 5 days ago. Comparison: None 2 view right humerus demonstrates nondisplaced slightly comminuted humeral head/neck fracture best seen on same-day shoulder exam. Elsewhere osteopenia and moderate AC degenerative arthropathy. No other bony, articular, or soft tissue abnormalities. Comment: Fracture not reported by interpreting ER clinician. Telephone report given to Dr. Smith at 0930 hrs. on October 12, 2024.
== END 2024-10-12 18:23 | disposition home or self-care (01) ==
LOC: ED 16:07
DX: S42.214A Unspecified nondisplaced fracture of surgical neck of right humerus, initial encounter for closed fracture (principal); W01.0XXA Fall on same level from slipping, tripping and stumbling without subsequent striking against object, initial encounter; Y92.000 Kitchen of unspecified non-institutional (private) residence as the place of occurrence of the external cause; M25.561 Pain in right knee; E11.42 Type 2 diabetes mellitus with diabetic polyneuropathy; Z79.84 Long term (current) use of oral hypoglycemic drugs; Z79.899 Other long term (current) drug therapy
CPT/HCPCS: 73030; 73060; 73562; 99283; 99284

== ENCOUNTER 2025-02-10 12:10 | Emergency (ER) | payer MEDICARE ==
[2025-02-10] MEDS ORDERED: XYLOCAINE 1% HCL 20 ML MDV IJ ONE (12:11)
[2025-02-10 12:24] VITALS: TEMP 97.7
[2025-02-10] MEDS ORDERED: DUONEB 0.5-3 MG/3 ml Neb IH ONE (12:40)
[2025-02-10] MEDS: DUONEB 0.5-3 MG/3 ml Neb IH ONE (12:40)
--- NOTE | 2025-02-10 12:42 | ERPHSYRPT ---
- History of Present Illness Time Seen by Provider: 02/10/25 12:37 Source: patient Exam Limitations: no limitations Patient Subjective Stated Complaint: patient stated that a couple of days ago she started having a cough and started having trouble breathing, today she stated she heard a rattle in the middle of her chest Triage Nursing Assessment: patient arrived to ed with complaints of SOB/cough, patient's vitals WNL, skin N/W/D, patient does not appear to be in any apparent distress, wheezing throughout all lobes noted, no complaints of pain Physician History: Patient is 64-year-old female with significant past medical history of diabetes hypertension COPD obesity started having a shortness of breath for last 4 to 5 days with cough chest congestion. Her shortness of breath got worse today so she came to the emergency room. She denies any fever nausea chills vomiting diarrhea chest pain headache or dizziness. Timing/Duration: day(s) (3-4 days) Severity of Dyspnea-Max: mild Severity of Dyspnea-Current: mild Possible Cause: frequent episodes Associated Symptoms: cough, wheezing, productive cough, tightness, No chest pain/discomfort, No fever, No calf pain, No leg swelling, No muscle spasms hands, No painful breathing, No sweating, No tingling face, No tingling hands Allergies/Adverse Reactions: diclofenac Allergy (Verified 02/10/25 12:24) Sulfa (Sulfonamide Antibiotics) [Sulfa(Sulfonamide Antibiotics)] Allergy (Verified 02/10/25 12:24) topiramate [From Topamax] Allergy (Verified 02/10/25 12:24) Home Medications: Lovastatin 0 mg PO DAILY 05/09/17 [History] Metformin HCl 1,000 mg PO BID 05/09/17 [History] Pioglitazone HCl [Actos] 0 mg PO DAILY 05/09/17 [History] Sitagliptin Phosphate [Januvia] 0 mg PO DAILY 05/09/17 [History] lisinopriL [Lisinopril] 0 mg PO DAILY 05/09/17 [History] Empagliflozin [Jardiance] 1 tab PO DAILY 06/05/18 [History] levETIRAcetam [Levetiracetam ER] 500 mg PO DAILY 06/28/19 [History] Hx Tetanus, Diphtheria Vaccination/Date Given: Yes Hx Influenza Vaccination/Date Given: Yes Hx Pneumococcal Vaccination/Date Given: Yes Travel Risk - International Travel Have you traveled outside of the country in past 3 weeks: No - Emerging Infectious Disease Are you exhibiting symptoms associated with any current EIDs: No - Review of Systems Constitutional: No Fever, No Chills Eyes: No Symptoms Ears, Nose, & Throat: No Symptoms Respiratory: Cough, Dyspnea, Dyspnea on Exertion (SHIN), Wheezing Cardiac: No Chest Pain, No Edema, No Syncope Abdominal/Gastrointestinal: No Abdominal Pain, No Nausea, No Vomiting, No Diarrhea Genitourinary Symptoms: No Dysuria Musculoskeletal: No Back Pain, No Neck Pain Skin: No Rash Neurological: No Dizziness, No Focal Weakness, No Sensory Changes Psychological: No Symptoms Endocrine: No Symptoms All Other Systems: Reviewed and Negative - Past Medical History Pertinent Past Medical History: Yes Neurological History: Migraines, Peripheral Neuropathy Cardiac History: No Pertinent History, Angina Respiratory History: Asthma, Other Endocrine Medical History: Diabetes Type II, Other Musculoskeletal History: Osteoarthritis History: No Pertinent History Psycho-Social History: No Pertinent History Female Reproductive Disorders: No Pertinent History Other Medical History: upper torso neuropathy, overactive bladder - Past Surgical History Past Surgical History: Yes Neuro Surgical History: No Pertinent History Cardiac: No Pertinent History Respiratory: No Pertinent History Gastrointestinal: Cholecystectomy Genitourinary: No Pertinent History Musculoskeletal: No Pertinent History Female Surgical History: Section, Tubal Ligation Other Surgical History: RIGHT KNEE SURGERY x 2 - Social History Smoking Status: Never smoker Exposure to second hand smoke: Yes Drug Use: none - Social Determinants of Health Will the patient participate in the screening: Yes Do you worry about a steady place to live?: No Do you have any problems with any of the following?: No known problems In the past 12 months,have you had to go without utilities?: No Transportation Issues: No Has anyone in your support network made you feel unsafe?: No Have you or anyone in your house had to go w/o enough food: No - Nursing Vital Signs Nursing Vital Signs: Initial Vital Signs Temperature 97.7 F 02/10/25 12:10 Pulse Rate 75 02/10/25 12:10 Respiratory Rate 16 02/10/25 12:10 Blood Pressure 138/98 02/10/25 12:10 O2 Sat by Pulse Oximetry 95 02/10/25 12:10 Pain Scale Pain Intensity 0 - Physical Exam General Appearance: no apparent distress, alert Eye Exam: PERRL/EOMI Neck Exam: normal inspection, supple Respiratory Exam: diminished breath sounds, rhonchi, wheezing Cardiovascular/Chest Exam: normal heart sounds, regular rate/rhythm Abdominal/Gastrointestinal Exam: soft, No tenderness, No distention, No mass Extremity Exam: non-tender, normal range of motion, normal inspection, no calf tenderness, no pedal edema Neurologic Exam: alert, oriented x 3, 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, 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, sensation nml, No motor deficits Skin Exam: normal color, warm, No dry SpO2 Interpretation: normal SpO2: 98 O2 Delivery: Room Air - Course Nursing assessment & vital signs reviewed: Yes - Radiology Exams Chest X-ray Interpretation: Interpreted by me, Reviewed by me Ordered Tests: Active Orders 24 hr Category Date Time Status CHEST 2 VIEWS (PA AND LAT) Stat Exams 02/10/25 12:23 Taken CBC W DIFF Stat Lab 02/10/25 12:45 Completed CMP Stat Lab 02/10/25 12:45 Completed NT PRO BNPII Stat Lab 02/10/25 12:45 Completed Respiratory Therapy Assessment DAILY RT 02/10/25 13:13 Active Medication Summary Discontinued Medications Generic Name Dose Route Start Last Admin Trade Name Freq PRN Reason Stop Dose Admin Albuterol/Ipratropium 3 ml 02/10/25 12:23 02/10/25 12:40 Ipratropium/Albuterol Sulfate 3 Ml Ampul.Neb IH 02/10/25 12:24 3 ml STAT ONE Administration Albuterol/Ipratropium Confirm 02/10/25 12:40 Ipratropium/Albuterol Sulfate 3 Ml Ampul.Neb Administered 02/10/25 12:41 Dose 3 ml IH .STK-MED ONE Budesonide 0.5 mg 02/10/25 12:24 02/10/25 12:50 Budesonide 0.5 Mg/2 Ml Ampul.Neb. IH 02/10/25 12:25 0.5 mg NOW ONE Administration Lab/Rad Data: Laboratory Result Diagrams 02/10/25 12:45 02/10/25 12:45 Laboratory Results 02/10/25 02/10/25 02/10/25 Range/Units 12:45 12:45 12:45 WBC 6.8 (3.98-10.04) x10^3/uL RBC 3.59 L (3.93-5.22) x10^6/uL Hgb 10.9 L (11.2-15.7) g/dL Hct 33.5 L (34.1-44.9) % MCV 93.3 (79.4-94.8) fL MCH 30.4 (25.6-32.2) pg MCHC 32.5 (32.2-35.5) g/dL RDW 13.5 (11.7-14.4) % Plt Count 206 (182-369) x10^3/uL MPV 10.8 (9.4-12.3) fL Gran % 73.1 H (34.0-71.1) % Immature Gran % (Auto) 0.4 (0.001-0.429) % Nucleat RBC Rel Count 0.0 (0.00-0.2) % Eos # (Auto) 0.31 (0.04-0.36) x10^3/uL Immature Gran # (Auto) 0.03 (0.001-0.031) x10^3u/L Absolute Lymphs (auto) 0.97 L (1.18-3.74) x10^3/uL Absolute Monos (auto) 0.53 (0.24-0.86) x10^3/uL Absolute Nucleated RBC 0.00 (0.00-0.012) x10^3u/L Lymphocytes % 14.2 L (19.3-51.7) % Monocytes % 7.8 (4.7-12.5) % Eosinophils % 4.5 (0.7-5.8) % Basophils % 0.0 L (0.1-1.2) % Absolute Granulocytes 4.99 (1.56-6.13) x10^3/uL Basophils # 0 L (0.01-0.08) x10^3/uL Sodium 138 (135-145) mmol/L Potassium 4.7 (3.5-5.1) mmol/L Chloride 106 (98-107) mmol/L Carbon Dioxide 28 (22-30) mmol/L Anion Gap 8.9 (5-15) MEQ/L BUN 24 H (7-17) mg/dL Creatinine 0.99 (0.52-1.04) mg/dL Estimated GFR 62.9 ML/MIN Glucose 169 H (74-106) mg/dL Calcium 8.6 (8.4-10.2) mg/dL Total Bilirubin 0.30 (0.2-1.3) mg/dL AST 21 (14-36) U/L ALT 16 (0-35) U/L Alkaline Phosphatase 64 (38-126) U/L NT-Pro-B Natriuret Pep 534 (<300) pg/mL Serum Total Protein 5.8 L (6.3-8.2) g/dL Albumin 3.3 L (3.5-5.0) g/dL Influenza Type A Ag NEGATIVE (NEGATIVE) Influenza Type B Ag NEGATIVE (NEGATIVE) RSV (PCR) NEGATIVE (NEGATIVE) SARS-CoV-2 (PCR) NEGATIVE (NEGATIVE) - Progress Progress: improved Air Movement: good Blood Culture(s) Obtained: No Counseled pt/family regarding: lab results, diagnosis, need for follow-up, rad results Medical Desision Making - Diagnostic Testing Diagnostic test were ordered, analyzed, and reviewed by me: Yes Radiological Interpretation: Interpreted by me, Reviewed by me - Risk of complications Low Risk: Low risk of morbidity from additional dx testing or treatment - Departure Departure Disposition: Home Clinical Impression: Acute bronchitis Qualifiers: Bronchitis organism: unspecified organism Qualified Code(s): J20.9 - Acute bronchitis, unspecified COPD (chronic obstructive pulmonary disease) Qualifiers: COPD type: chronic bronchitis Chronic bronchitis type: simple Qualified Code(s): J41.0 - Simple chronic bronchitis Condition: Stable Critical Care Time: No Referrals: ESHA GUILLAUME [Primary Care Provider, INTERNAL MEDICINE] - Follow up/PCP as directed Instructions: Chronic Obstructive Pulmonary Disease, Chronic obstructive pulmonary disease (COPD), Acute bronchitis in adults Additional Instructions: Discharge/Care Plan MONSERRAT ROSADO was seen on 02/10/25 in the Emergency Room. The patient was counseled regarding Diagnosis,Lab results, Imaging studies, need for follow up and when to return to the Emergency Room. Prescriptions given: Discharge Note I have spoken with the patient and/or caregivers. I have explained the patient's condition, diagnosis and treatment plan based on the information available to me at this time. I have answered the patient's and/or caregiver's questions and addressed any concerns. The patient and/or caregivers have as good understanding of the patient's diagnosis, condition and treatment plan as can be expected at this point. The vital signs have been stable. The patient's condition is stable and appropriate for discharge from the emergency department. The patient will pursue further outpatient evaluation with the primary care physician or other designated or consulting physician as outlined in the discharge instructions. The patient and/or caregivers are agreeable to this plan of care and follow-up instructions have been explained in detail. The patient and/or caregivers have received these instruction. The patient/and or caregivers are aware that any significant change in condition or worsening of symptoms should prompt an immediate return to this or the closest emergency department or call 911. MONSERRAT ROSADO was seen on 02/10/25 n the Emergency Room. At that time you were treated for an emergent condition, during your visit Laboratory, Radiology and/or other procedures may have been ordered. It is very important that you follow-up with your Primary Care Physician ESHA GUILLAUME within the next 24- 48 hours to review your Emergency Room visit and the final results of testing that was ordered. Some test results such as Urine Cultures, Blood Cultures, and other cultures if ordered will not be finalized for 24-48 hours. If you do not have a Primary Care Provider please call the medical records department at [phone] ext [phone] to obtain a copy of your results or you may sign into our patient portal to obtain these results by visiting us @ [email or web address] and completing the following steps: 1. Click on the Patient Portal link 2. Click the Patient Self Enrollment Link to complete the enrollment form and entering your 3. Once the enrollment form is completed you will receive an email with a temporary ID and password at the email address you provided. 4. Next choose a user name and password. Your user name must be at least 4 characters long and your password must be at least 4 characters long. 5. Choose a security question from the list and provide your answer to the question. If you already have signed into the Health Portal you may access your Health Care Information 07/02 by the following steps: 1. Login to our website @ [email or web address] 2. Enter your original user name and password. FAQS The [facility] Health Portal is an online tool that contains your Lab Results, Radiology Reports, Visit History, Discharge Instructions and Health Summary Lab and Radiology Results will not be available for 72 hours on the portal. The Portal is a secure site, passwords are encryted and URLs are re-written so they cannot be copied and pasted. You and authorized family members are the only ones who can access your Portal. Also there is a timeout feature that protects your information if you leave the Portal page open. If you have technical difficulty please use the Contact Us link on the page this will allow you to submit any questions you have regarding the Portal or you may contact the Medical Record Department at [phone]. Prescriptions: Cefdinir 300 mg PO BID #15 cap Methylprednisolone Packet [Medrol Dosepack] 4 mg PO UD #21 packet
[2025-02-10] MEDS: PULMICORT 0.5 MG/2 ML RESPULES IH ONE (12:50)
[2025-02-10 12:54] LABS: BASOPHIL % 0.0 % (0.1-1.2); Basophil (Absolute #) 0 x10^3/uL (0.01-0.08); Eosinophil (Absolute #) 0.31 x10^3/uL (0.04-0.36); Hematocrit 33.5 % (34.1-44.9); Hemoglobin 10.9 g/dL (11.2-15.7); IMMATURE GRAN # 0.03 x10^3u/L (0.001-0.031); IMMATURE GRAN % 0.4 % (0.001-0.429); Lymphocyte (Absolute #) 0.97 x10^3/uL (1.18-3.74); Mean Corpuscular Hemoglobin 30.4 pg (25.6-32.2); Mean Corpuscular Hgb Concent. 32.5 g/dL (32.2-35.5); Monocyte (Absolute #) 0.53 x10^3/uL (0.24-0.86); NUCLEATED RBC # 0.00 x10^3u/L (0.00-0.012); NUCLEATED RBC % 0.0 % (0.00-0.2); Platelet Count 206 x10^3/uL (182-369); Red Blood Count 3.59 x10^6/uL (3.93-5.22); White Blood Count 6.8 x10^3/uL (3.98-10.04)
[2025-02-10 13:16] LABS: Calcium 8.6 mg/dL (8.4-10.2); Carbon Dioxide 28.0 mmol/L (22-30); Creatinine 1 0.99 mg/dL (0.52-1.04); EST GLOMERULAR FILTRATION RATE 62.9 ML/MIN; Glucose 169.0 mg/dL (74-106); NT PRO BNPII 534.0 pg/mL (<300); Potassium 4.7 mmol/L (3.5-5.1); SGOT/AST 21.0 U/L (14-36); SGPT/ALT 16.0 U/L (0-35); Total Protein 5.8 g/dL (6.3-8.2)
[2025-02-10 13:21] VITALS: O2SAT 98
[2025-02-10 13:31] LABS: INFLUENZA A NEGATIVE (NEGATIVE); INFLUENZA B NEGATIVE (NEGATIVE); RESPIRATORY SYNCTIAL VIRUS NEGATIVE (NEGATIVE); SARS-CoV-2 Xpert Express NEGATIVE (NEGATIVE)
[2025-02-10 14:11] VITALS: BP 140/68; PULSE 75; RESP 16
[2025-02-10] MEDS ORDERED: Rocephin 1000 MG INJ ONE (14:22)
[2025-02-10] MEDS: Rocephin 1000 MG INJ IM ONE (14:27)
--- NOTE | 2025-02-10 19:51 | XRAY ---
Indication: Cough. Short of breath. Comparison: May 09, 2017 PA/lateral chest again demonstrates mild right hemidiaphragm elevation. No focal infiltrate, consolidation, or large effusion. Heart and mediastinum structures within normal limits. Bony thoracic intact again with osteopenia and mild degenerative changes. Impression: Nonacute chest with chronic features.
== END 2025-02-10 14:49 | disposition home or self-care (01) ==
LOC: ED 12:10
DX: J20.9 Acute bronchitis, unspecified (principal); J41.0 Simple chronic bronchitis; R06.02 Shortness of breath; E11.42 Type 2 diabetes mellitus with diabetic polyneuropathy; Z79.52 Long term (current) use of systemic steroids; Z79.84 Long term (current) use of oral hypoglycemic drugs; Z79.899 Other long term (current) drug therapy; I10 Essential (primary) hypertension

== ENCOUNTER 2025-05-22 15:32 | Day surgery (SDC) | payer MEDICARE ==
[2012-05-14 10:58] VITALS: BP 141/85
[2025-05-22] MEDS ORDERED: GELSYN-3 IU ONE (15:33)
[2025-05-22] MEDS ORDERED: LIDOCAINE HCL 1% 50 MG/5 ML VL IJ ONE (15:33)
--- NOTE | 2025-05-23 08:43 | XRAY ---
Indication: Right knee injection. Intraoperative fluoroscopy provided for 7 seconds. Single digital spot image submitted for interpretation demonstrates needle tip projecting over right femur intercondylar notch. Small amount of contrast injected for needle tip placement. Correlate with intraoperative findings/report.
--- NOTE | 2025-05-23 08:43 | XRAY ---
Indication: Left knee injection. Intraoperative fluoroscopy provided for 8 seconds. Single digital spot image submitted for interpretation demonstrates needle tip projecting over left femur intercondylar notch. Small amount of contrast injected for needle tip placement. Correlate with intraoperative findings/report.
--- NOTE | 2025-05-23 09:35 | XRAY ---
8 seconds of fluoroscopy was used in surgery for a left intra-articular knee injection.
--- NOTE | 2025-05-23 09:35 | XRAY ---
7 seconds of fluoroscopy was used in surgery for a right intra-articular knee injection.
== END 2025-05-22 18:20 | disposition home or self-care (01) ==
LOC: SDC-PAIN 15:32
PROVIDERS: ATTEND Psychiatry & Neurology Pain Medicine
DX: M17.0 Bilateral primary osteoarthritis of knee (principal); E11.9 Type 2 diabetes mellitus without complications

== ENCOUNTER 2025-05-29 15:51 | Day surgery (SDC) | payer MEDICARE ==
[2012-05-14 10:58] VITALS: BP 141/85
[2025-05-29] MEDS ORDERED: LIDOCAINE HCL 1% 50 MG/5 ML VL IJ ONE (15:52)
--- NOTE | 2025-05-29 19:54 | XRAY ---
Indication: Left knee injection. Intraoperative fluoroscopy provided for 7 seconds. Single digital spot image submitted for interpretation demonstrates needle tip projecting over left femur intercondylar notch. Small amount of contrast injected for needle tip placement. Correlate with intraoperative findings/report.
--- NOTE | 2025-05-29 19:54 | XRAY ---
Indication: Right knee injection. Intraoperative fluoroscopy provided for 8 seconds. Single digital spot image submitted for interpretation demonstrates needle tip projecting over right femur intercondylar notch. Small amount of contrast injected for needle tip placement. Correlate with intraoperative findings/report.
--- NOTE | 2025-05-30 09:26 | XRAY ---
8 seconds of fluoroscopy was used in surgery for a right intra-articular knee injection.
--- NOTE | 2025-05-30 09:27 | XRAY ---
7 seconds of fluoroscopy was used in surgery for a left intra-articular knee injection.
== END 2025-05-29 18:36 | disposition home or self-care (01) ==
LOC: SDC-PAIN 15:51
PROVIDERS: ATTEND Psychiatry & Neurology Pain Medicine
DX: M17.0 Bilateral primary osteoarthritis of knee (principal); E11.9 Type 2 diabetes mellitus without complications

== ENCOUNTER 2025-06-05 16:02 | Day surgery (SDC) | payer MEDICARE ==
[2012-05-14 10:58] VITALS: BP 141/85
[2025-06-05] MEDS ORDERED: LIDOCAINE HCL 1% 50 MG/5 ML VL IJ ONE (16:03)
[2025-06-05] MEDS ORDERED: GELSYN-3 IU ONE (16:03)
--- NOTE | 2025-06-06 12:56 | XRAY ---
7 seconds of fluoroscopy was used in surgery for a right intra-articular knee injection.
--- NOTE | 2025-06-06 12:57 | XRAY ---
7 seconds of fluoroscopy was used in surgery for left intra-articular knee injection.
== END 2025-06-05 18:30 | disposition home or self-care (01) ==
LOC: SDC-PAIN 16:02
PROVIDERS: ATTEND Psychiatry & Neurology Pain Medicine
DX: M17.0 Bilateral primary osteoarthritis of knee (principal); E11.9 Type 2 diabetes mellitus without complications